=== PATIENT | female | born 2005 | race Caucasian/White ===

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

== ENCOUNTER → 2023-07-04 | Outpatient (CLI) | payer OTHER ==
[~2023-07-04] MED LIST changes: +CEPH500 PO; +Doxycycline Mo100 M1 PO
[2023-07-06 18:08] LABS: APTIMA MEDIA TYPE Unisex Swab; C. TRACHOMATIS BY TMA Negative (Negative); N. GONORRHOEAE BY TMA Negative (Negative); SPECIMEN SOURCE Vaginal
== END ==
LOC: LAB 13:13 → LAB SHORT 13:13
PROVIDERS: Advanced Practice Midwife
DX: Z11.3 Encounter for screening for infections with a predominantly sexual mode of transmission (principal)
CPT/HCPCS: 87491; 87591

== ENCOUNTER 2023-12-02 20:49 | Emergency (ER) | payer OTHER ==
[~2023-12-02] VITALS: Ht 154.9 cm; Wt 104.3 kg
[~2023-12-02 20:49] MED LIST changes: +ALBU90OI INH; +ALEVAZOL56.7 G1 TOP
[2023-12-02 21:30] LABS: BASOPHILS ABSOLUTE AUTO 0.06 K/mm3 (0.00-0.23); BASOPHILS PERCENT AUTO 1 % (0-2); EOSINOPHILS PERCENT AUTO 1 % (0-6); Hematocrit 44.7 % (33.0-51.0); Hemoglobin 15.6 g/dL (11.5-16.0); IMMATURE GRAN ABSOLUTE AUTO 0.04 K/mm3 (0.00-0.10); IMMATURE GRAN PERCENT AUTO 0 % (0-1); LYMPHOCYTES PERCENT AUTO 38 % (21-46); MONOCYTES ABSOLUTE AUTO 0.64 K/mm3 (0.16-1.47); MONOCYTES PERCENT AUTO 6 % (4-13); Mean Corpuscular HGB 28.8 pg (26.0-34.0); Mean Corpuscular HGB Conc 34.9 g/dL (31.5-36.5); Mean Corpuscular Volume 83 fL (80-100); Mean Platelet Volume 10.2 fL (9.1-12.4); NEUTROPHILS ABSOLUTE AUTO 5.44 K/mm3 (1.96-9.15); NEUTROPHILS PERCENT AUTO 53 % (41-73); Platelet Count 265 K/mm3 (150-400); RDW Coefficient Variation 12.4 % (11.7-14.2); RDW Standard Deviation 36.8 fL (35.1-46.3); Red Blood Cell Count 5.42 M/mm3 (3.80-5.20); White Blood Cell Count 10.18 K/mm3 (4.00-11.30)
[2023-12-02 21:53] LABS: Albumin, Blood 3.6 g/dL (3.4-5.0); Bilirubin, Total 0.3 mg/dL (0.1-1.0); Bun/Creatinine Ratio 16.1 (12.0-20.0); Calcium, Blood 9.4 mg/dL (8.5-10.1); Creatinine, Blood 0.75 mg/dL (0.40-1.00); Globulin, Blood 3.6 g/dL (2.2-4.0); Potassium, Blood 3.8 mmol/L (3.5-5.5); Total Protein, Blood 7.2 g/dL (6.4-8.2)
[2023-12-03 01:31] LABS: U Amphetamine Screen Not Detected; U Barbituate Screen Not Detected; U Benzodiazapine Screen Not Detected; U Buprenorphine Screen Not Detected; U Cannabinoids Screen Not Detected; U Cocaine Screen Not Detected; U Methadone Screen Not Detected; U Methamphetamine Screen Not Detected; U Opiates Screen Not Detected; U Oxycodone Screen Not Detected; U Phencyclidine Screen Not Detected
[2023-12-03 01:37] VITALS: BP 117/78
== END 2023-12-03 01:55 | disposition home or self-care (01) ==
LOC: ER 20:49
PROVIDERS: Nurse Practitioner
DX: G40.A09 Absence epileptic syndrome, not intractable, without status epilepticus (principal); Z91.199 Patient's noncompliance with other medical treatment and regimen due to unspecified reason; Z88.0 Allergy status to penicillin; Z91.038 Other insect allergy status; Z91.030 Bee allergy status
CPT/HCPCS: 80053; 81025; 85025; 99284

== ENCOUNTER 2023-12-10 21:20 | Emergency (ER) | payer OTHER ==
[~2023-12-10] VITALS: Ht 154.9 cm; Wt 108.9 kg
[2023-12-10 21:26] VITALS: BP 140/90
[2023-12-10] MEDS ORDERED: TOPI15C PO (21:29)
[2023-12-16] MEDS ORDERED: Celexa20 MG PO (20:03)
[2023-12-16] MEDS ORDERED: TRAZ50 PO (20:03)
[2023-12-16] MEDS ORDERED: KEPPRA250 M1 PO (20:58)
== END 2023-12-10 21:30 | disposition home or self-care (01) ==
LOC: ER 21:20
DX: Z76.0 Encounter for issue of repeat prescription (principal); Z86.69 Personal history of other diseases of the nervous system and sense organs; Z88.0 Allergy status to penicillin; Z91.030 Bee allergy status; Z79.899 Other long term (current) drug therapy
CPT/HCPCS: 99281

== ENCOUNTER 2024-01-15 15:51 | Emergency (ER) | payer OTHER ==
[~2024-01-15] VITALS: Ht 154.9 cm; Wt 104.3 kg
[~2024-01-15 15:51] MED LIST changes: +Celexa20 MG PO; +KEPPRA250 M1 PO; +TOPI15C PO; +TRAZ50 PO
[2024-01-15] MEDS ORDERED: LEVE500 (16:02)
[2024-01-15] MEDS ORDERED: LEVE500 PO (16:04)
[2024-01-15] MEDS ORDERED: CITALOPRAM HBR10 MG (16:06)
[2024-01-15 17:07] LABS: BASOPHILS ABSOLUTE AUTO 0.04 K/mm3 (0.00-0.23); BASOPHILS PERCENT AUTO 1 % (0-2); EOSINOPHILS ABSOLUTE AUTO 0.08 K/mm3 (0.00-0.68); EOSINOPHILS PERCENT AUTO 1 % (0-6); Hematocrit 44.3 % (33.0-51.0); Hemoglobin 14.8 g/dL (11.5-16.0); IMMATURE GRAN ABSOLUTE AUTO 0.02 K/mm3 (0.00-0.10); IMMATURE GRAN PERCENT AUTO 0 % (0-1); LYMPHOCYTES ABSOLUTE AUTO 2.91 K/mm3 (0.84-5.20); LYMPHOCYTES PERCENT AUTO 37 % (21-46); MONOCYTES PERCENT AUTO 6 % (4-13); Mean Corpuscular HGB 28.7 pg (26.0-34.0); Mean Corpuscular HGB Conc 33.4 g/dL (31.5-36.5); Mean Corpuscular Volume 86 fL (80-100); Mean Platelet Volume 10.4 fL (9.1-12.4); NEUTROPHILS ABSOLUTE AUTO 4.28 K/mm3 (1.96-9.15); NEUTROPHILS PERCENT AUTO 55 % (41-73); Platelet Count 192 K/mm3 (150-400); RDW Coefficient Variation 11.9 % (11.7-14.2); RDW Standard Deviation 37.3 fL (35.1-46.3); Red Blood Cell Count 5.16 M/mm3 (3.80-5.20); White Blood Cell Count 7.83 K/mm3 (4.00-11.30)
[2024-01-15 17:20] LABS: Albumin, Blood 3.1 g/dL (3.4-5.0); Albumin/Globulin Ratio 0.8 (0.8-1.8); Bilirubin, Total 0.4 mg/dL (0.1-1.0); Bun/Creatinine Ratio 15.5 (12.0-20.0); Calcium, Blood 8.3 mg/dL (8.5-10.1); Creatinine, Blood 0.71 mg/dL (0.40-1.00); Globulin, Blood 3.9 g/dL (2.2-4.0); Potassium, Blood 3.7 mmol/L (3.5-5.5)
[2024-01-15 17:50] VITALS: BP 128/58
== END 2024-01-15 17:50 | disposition home or self-care (01) ==
LOC: ER 15:51
PROVIDERS: Emergency Medicine
DX: G40.909 Epilepsy, unspecified, not intractable, without status epilepticus (principal)
CPT/HCPCS: 36415; 80053; 85025; 93005; 93010; 99284-25

== ENCOUNTER 2024-01-16 12:33 | Emergency (ER) | payer OTHER ==
[~2024-01-16] VITALS: Ht 154.9 cm; Wt 113.4 kg
[~2024-01-16 12:33] MED LIST changes: +CITALOPRAM HBR10 MG; +LEVE500; +LEVE500 PO
[2024-01-16 12:38] VITALS: BP 132/88
== END 2024-01-16 14:37 | disposition home or self-care (01) ==
LOC: ER 12:33
DX: R56.9 Unspecified convulsions (principal); F41.9 Anxiety disorder, unspecified; F19.10 Other psychoactive substance abuse, uncomplicated; Z88.0 Allergy status to penicillin; Z91.030 Bee allergy status; Z79.899 Other long term (current) drug therapy
CPT/HCPCS: 99284

== ENCOUNTER 2024-01-25 23:52 | Emergency (ER) | payer OTHER ==
[~2024-01-25] VITALS: Ht 154.9 cm; Wt 74.8 kg
[2024-01-25 23:56] VITALS: BP 137/88
== END 2024-01-26 00:26 | disposition home or self-care (01) ==
LOC: ER 23:52
DX: R56.9 Unspecified convulsions (principal); F41.9 Anxiety disorder, unspecified; R11.0 Nausea; Z91.030 Bee allergy status; Z88.0 Allergy status to penicillin; Z91.018 Allergy to other foods; Z59.00 Homelessness unspecified
CPT/HCPCS: 36415; 99284

== ENCOUNTER 2024-03-22 08:55 | Emergency (ER) | payer OTHER ==
[~2024-03-22] VITALS: Ht 154.9 cm; Wt 104.3 kg
[~2024-03-22 08:55] MED LIST changes: +ABILIFY MYCITE5 M2 PO
[2024-03-22] MEDS ORDERED: levETIRAcetam 1,000 MG in NS 100 ML IV ONE (09:15)
[2024-03-22 10:40] VITALS: BP 129/80
== END 2024-03-22 10:47 | disposition home or self-care (01) ==
LOC: ER 08:55
DX: G40.909 Epilepsy, unspecified, not intractable, without status epilepticus (principal); J45.909 Unspecified asthma, uncomplicated; F17.290 Nicotine dependence, other tobacco product, uncomplicated; Z79.899 Other long term (current) drug therapy; Z91.030 Bee allergy status; Z88.0 Allergy status to penicillin; Z91.018 Allergy to other foods
CPT/HCPCS: 96365; 99284-25; J1953

== ENCOUNTER 2024-05-24 20:45 | Emergency (ER) | payer OTHER ==
[~2024-05-24] VITALS: Ht 154.9 cm; Wt 104.3 kg
[2024-05-24 20:58] VITALS: BP 142/97
[2024-05-24] MEDS ORDERED: Ondansetron 4 MG SoluTab SL ONE (21:05)
[2024-05-24 21:53] LABS: Influenza A, PCR NEGATIVE (NEGATIVE); Influenza B, PCR NEGATIVE (NEGATIVE); Resp Syncytial Virus, PCR NEGATIVE (NEGATIVE); SARS-Cov-2 (COVID-19) PCR, MMC NEGATIVE (NEGATIVE)
[2024-05-25] MEDS ORDERED: DICY20 PO (21:31)
[2024-05-25] MEDS ORDERED: Ondansetron Odt8 MG MM (21:31)
== END 2024-05-24 22:44 | disposition left against medical advice (07) ==
LOC: ER 20:45
PROVIDERS: Emergency Medicine
DX: R11.2 Nausea with vomiting, unspecified (principal); R19.7 Diarrhea, unspecified; R50.9 Fever, unspecified; Z53.21 Procedure and treatment not carried out due to patient leaving prior to being seen by health care provider
CPT/HCPCS: 0241U; A9270

== ENCOUNTER 2024-05-25 16:31 | Emergency (ER) | payer OTHER ==
[~2024-05-25] VITALS: Ht 154.9 cm; Wt 104.3 kg
[2024-05-25 17:28] LABS: BASOPHILS ABSOLUTE AUTO 0.03 K/mm3 (0.00-0.23); BASOPHILS PERCENT AUTO 0 % (0-2); EOSINOPHILS ABSOLUTE AUTO 0.08 K/mm3 (0.00-0.68); EOSINOPHILS PERCENT AUTO 1 % (0-6); Hematocrit 43.2 % (33.0-51.0); Hemoglobin 14.8 g/dL (11.5-16.0); IMMATURE GRAN ABSOLUTE AUTO 0.01 K/mm3 (0.00-0.10); IMMATURE GRAN PERCENT AUTO 0 % (0-1); LYMPHOCYTES ABSOLUTE AUTO 2.82 K/mm3 (0.84-5.20); LYMPHOCYTES PERCENT AUTO 37 % (21-46); MONOCYTES ABSOLUTE AUTO 0.54 K/mm3 (0.16-1.47); MONOCYTES PERCENT AUTO 7 % (4-13); Mean Corpuscular HGB 28.2 pg (26.0-34.0); Mean Corpuscular HGB Conc 34.3 g/dL (31.5-36.5); Mean Corpuscular Volume 82 fL (80-100); Mean Platelet Volume 9.9 fL (9.1-12.4); NEUTROPHILS ABSOLUTE AUTO 4.14 K/mm3 (1.96-9.15); NEUTROPHILS PERCENT AUTO 54 % (41-73); Platelet Count 222 K/mm3 (150-400); RDW Standard Deviation 36.4 fL (35.1-46.3); Red Blood Cell Count 5.24 M/mm3 (3.80-5.20); White Blood Cell Count 7.62 K/mm3 (4.00-11.30)
[2024-05-25 18:14] LABS: Albumin, Blood 3.2 g/dL (3.4-5.0); Albumin/Globulin Ratio 0.9 (0.8-1.8); Bilirubin, Total 0.2 mg/dL (0.1-1.0); Bun/Creatinine Ratio 14.9 (12.0-20.0); Calcium, Blood 8.6 mg/dL (8.5-10.1); Creatinine, Blood 0.74 mg/dL (0.40-1.00); Globulin, Blood 3.7 g/dL (2.2-4.0); Potassium, Blood 3.4 mmol/L (3.5-5.5); Total Protein, Blood 6.9 g/dL (6.4-8.2)
[2024-05-25] MEDS ORDERED: Dicyclomine HCl 10 MG/ML 2ML Amp IM ONE (21:30)
[2024-05-25] MEDS ORDERED: Ondansetron 8 MG SoluTab SL ONE (21:30)
[2024-05-25] MEDS ORDERED: Ondansetron Odt8 MG MM (21:31)
[2024-05-25] MEDS ORDERED: DICY20 PO (21:31)
[2024-05-25 21:37] VITALS: BP 127/78
== END 2024-05-25 21:49 | disposition home or self-care (01) ==
LOC: ER 16:31
PROVIDERS: Physician Assistant
DX: R19.7 Diarrhea, unspecified (principal); R11.2 Nausea with vomiting, unspecified; R50.9 Fever, unspecified; Z79.899 Other long term (current) drug therapy; F17.290 Nicotine dependence, other tobacco product, uncomplicated; Z88.0 Allergy status to penicillin; Z91.030 Bee allergy status; Z91.09 Other allergy status, other than to drugs and biological substances
CPT/HCPCS: 80053; 84703; 85025; 99284; A9270; J0500

== ENCOUNTER 2024-08-05 21:30 | Emergency (ER) | payer OTHER ==
[~2024-08-05] VITALS: Ht 152.4 cm; Wt 104.3 kg
[~2024-08-05 21:30] MED LIST changes: +DICY20 PO; +Ondansetron Odt8 MG MM
[2024-08-05] MEDS ORDERED: ABILIFY MYCITE2 M2 PO (22:03)
[2024-08-05] MEDS ORDERED: NS 1,000 ML IV SCH (22:15)
[2024-08-05] MEDS ORDERED: levETIRAcetam 1,500 MG in NS 100 ML IV ONE (22:15)
[2024-08-05] MEDS ORDERED: LEVE500 PO (22:22)
[2024-08-05 22:47] LABS: BASOPHILS ABSOLUTE AUTO 0.03 K/mm3 (0.00-0.23); BASOPHILS PERCENT AUTO 0 % (0-2); EOSINOPHILS ABSOLUTE AUTO 0.06 K/mm3 (0.00-0.68); EOSINOPHILS PERCENT AUTO 1 % (0-6); Hemoglobin 14.8 g/dL (11.5-16.0); IMMATURE GRAN ABSOLUTE AUTO 0.03 K/mm3 (0.00-0.10); IMMATURE GRAN PERCENT AUTO 0 % (0-1); LYMPHOCYTES PERCENT AUTO 34 % (21-46); MONOCYTES ABSOLUTE AUTO 0.42 K/mm3 (0.16-1.47); MONOCYTES PERCENT AUTO 5 % (4-13); Mean Corpuscular HGB 29.1 pg (26.0-34.0); Mean Corpuscular HGB Conc 35.2 g/dL (31.5-36.5); Mean Corpuscular Volume 83 fL (80-100); Mean Platelet Volume 10.1 fL (9.1-12.4); NEUTROPHILS PERCENT AUTO 60 % (41-73); Platelet Count 223 K/mm3 (150-400); RDW Coefficient Variation 12.5 % (11.7-14.2); RDW Standard Deviation 37.5 fL (35.1-46.3); Red Blood Cell Count 5.08 M/mm3 (3.80-5.20); White Blood Cell Count 8.94 K/mm3 (4.00-11.30)
[2024-08-05 23:13] LABS: Albumin, Blood 3.2 g/dL (3.4-5.0); Albumin/Globulin Ratio 0.9 (0.8-1.8); Bilirubin, Total 0.4 mg/dL (0.1-1.0); Bun/Creatinine Ratio 20.3 (12.0-20.0); Calcium, Blood 8.7 mg/dL (8.5-10.1); Creatinine, Blood 0.69 mg/dL (0.40-1.00); Globulin, Blood 3.7 g/dL (2.2-4.0); Potassium, Blood 3.6 mmol/L (3.5-5.5); Total Protein, Blood 6.9 g/dL (6.4-8.2)
[2024-08-06 00:30] VITALS: BP 105/57
== END 2024-08-06 00:51 | disposition home or self-care (01) ==
LOC: ER 21:30
PROVIDERS: Emergency Medicine
DX: G40.909 Epilepsy, unspecified, not intractable, without status epilepticus (principal); E86.0 Dehydration; R51.9 Headache, unspecified; T42.6X6A Underdosing of other antiepileptic and sedative-hypnotic drugs, initial encounter; F17.290 Nicotine dependence, other tobacco product, uncomplicated; Z91.148 Patient's other noncompliance with medication regimen for other reason; Z91.018 Allergy to other foods; Z88.0 Allergy status to penicillin; Z91.030 Bee allergy status; Z79.899 Other long term (current) drug therapy; Z59.89 Other problems related to housing and economic circumstances
CPT/HCPCS: 80053; 82550; 84703; 85025; 93005; 93010; 96365; 99284-25; J1953; J7030

== ENCOUNTER 2024-08-15 18:41 | Emergency (ER) | payer OTHER ==
[~2024-08-15] VITALS: Ht 167.6 cm; Wt 95.2 kg
[~2024-08-15 18:41] MED LIST changes: +ABILIFY MYCITE2 M2 PO
[2024-08-15 19:54] LABS: BASOPHILS ABSOLUTE AUTO 0.05 K/mm3 (0.00-0.23); BASOPHILS PERCENT AUTO 1 % (0-2); EOSINOPHILS ABSOLUTE AUTO 0.06 K/mm3 (0.00-0.68); EOSINOPHILS PERCENT AUTO 1 % (0-6); Hematocrit 43.7 % (33.0-51.0); Hemoglobin 14.7 g/dL (11.5-16.0); IMMATURE GRAN ABSOLUTE AUTO 0.03 K/mm3 (0.00-0.10); IMMATURE GRAN PERCENT AUTO 0 % (0-1); LYMPHOCYTES ABSOLUTE AUTO 2.52 K/mm3 (0.84-5.20); LYMPHOCYTES PERCENT AUTO 30 % (21-46); MONOCYTES ABSOLUTE AUTO 0.45 K/mm3 (0.16-1.47); MONOCYTES PERCENT AUTO 5 % (4-13); Mean Corpuscular HGB 28.4 pg (26.0-34.0); Mean Corpuscular HGB Conc 33.6 g/dL (31.5-36.5); Mean Corpuscular Volume 85 fL (80-100); Mean Platelet Volume 10.2 fL (9.1-12.4); NEUTROPHILS ABSOLUTE AUTO 5.39 K/mm3 (1.96-9.15); NEUTROPHILS PERCENT AUTO 63 % (41-73); Platelet Count 219 K/mm3 (150-400); RDW Coefficient Variation 12.6 % (11.7-14.2); RDW Standard Deviation 38.7 fL (35.1-46.3); Red Blood Cell Count 5.17 M/mm3 (3.80-5.20)
[2024-08-15 21:24] LABS: Anion Gap 11 mmol/L (3-11); Blood Urea Nitrogen 10 mg/dL (8-24); Bun/Creatinine Ratio 15.3 (12.0-20.0); CO2, Blood 23 mmol/L (21-32); Calcium, Blood 8.8 mg/dL (8.5-10.1); Chloride, Blood 113 mmol/L (98-108); Creatinine, Blood 0.65 mg/dL (0.40-1.00); Glomerular Filtration Rate 128 (60-); Glucose, Blood 95 mg/dL (70-99); Potassium, Blood 3.8 mmol/L (3.5-5.5); Prolactin 8.4 ng/mL; Sodium, Blood 143 mmol/L (136-145)
[2024-08-15 21:36] LABS: CORONAVIRUS COVID-19 AG Negative (NEGATIVE); INFLUENZA A AG Negative (NEGATIVE); INFLUENZA B AG Negative (NEGATIVE)
[2024-08-15 22:04] LABS: Beta HCG, Quantitative, Serum <1 mIU/mL (0-3)
[2024-08-15 22:13] LABS: Source, Urine Clean Catch
[2024-08-15 22:19] LABS: Bilirubin, Urine Neg (Neg); Blood, Urine Neg (Neg); Glucose Qualitative, Urine Neg (Neg); Ketones, Urine Neg (Neg); Leukocyte Esterase, Urine Neg (Neg); Nitrite, Urine Neg (Neg); Protein, Urine 1+ (Neg); Specific Gravity, Urine 1.015 (1.003-1.022); Urobilinogen, Urine NORM (Normal)
[2024-08-15 22:23] LABS: Appearance, Urine Cloudy (Clear); Color, Urine Yellow (P-Yellow)
[2024-08-15 22:32] LABS: Amorphous Heavy (0-Heavy); Bacteria Rare /hpf; Red Blood Cells, Urine Not Seen /hpf (0-2); Squamous Epithelial Cells Few /hpf (Few); White Blood Cells, Urine Not Seen /hpf (0-5)
[2024-08-15] MEDS ORDERED: LevETIRAcetam 500 MG Tab PO ONE (22:35)
[2024-08-15 22:44] VITALS: BP 130/84
== END 2024-08-15 22:52 | disposition home or self-care (01) ==
LOC: ER 18:41
PROVIDERS: Student in an Organized Health Care Education/Training Program
DX: R56.9 Unspecified convulsions (principal); Z91.198 Patient's noncompliance with other medical treatment and regimen for other reason; F17.290 Nicotine dependence, other tobacco product, uncomplicated; Z88.0 Allergy status to penicillin; Z91.030 Bee allergy status; Z91.018 Allergy to other foods
CPT/HCPCS: 36415; 80048; 81001; 81025; 84146; 84702; 85025; 87428-QW; 99284; A9270

== ENCOUNTER 2024-09-16 19:11 | Emergency (ER) | payer OTHER ==
[~2024-09-16] VITALS: Ht 154.9 cm; Wt 104.3 kg
[2024-09-16] MEDS ORDERED: Acetaminophen 500 MG Tab PO ONE (20:05)
[2024-09-16] MEDS ORDERED: NS 1,000 ML IV SCH (20:05)
[2024-09-16] MEDS ORDERED: levETIRAcetam 1,000 MG in NS 100 ML IV ONE (20:05)
[2024-09-16 21:18] LABS: BASOPHILS ABSOLUTE AUTO 0.04 K/mm3 (0.00-0.23); BASOPHILS PERCENT AUTO 0 % (0-2); EOSINOPHILS ABSOLUTE AUTO 0.13 K/mm3 (0.00-0.68); EOSINOPHILS PERCENT AUTO 1 % (0-6); Hematocrit 42.3 % (33.0-51.0); IMMATURE GRAN ABSOLUTE AUTO 0.04 K/mm3 (0.00-0.10); IMMATURE GRAN PERCENT AUTO 0 % (0-1); LYMPHOCYTES ABSOLUTE AUTO 3.25 K/mm3 (0.84-5.20); LYMPHOCYTES PERCENT AUTO 32 % (21-46); MONOCYTES ABSOLUTE AUTO 0.64 K/mm3 (0.16-1.47); MONOCYTES PERCENT AUTO 6 % (4-13); Mean Corpuscular HGB 28.9 pg (26.0-34.0); Mean Corpuscular HGB Conc 35.5 g/dL (31.5-36.5); Mean Corpuscular Volume 82 fL (80-100); NEUTROPHILS PERCENT AUTO 60 % (41-73); RDW Coefficient Variation 12.6 % (11.7-14.2); RDW Standard Deviation 37.2 fL (35.1-46.3); Red Blood Cell Count 5.19 M/mm3 (3.80-5.20)
[2024-09-16 21:38] LABS: Bun/Creatinine Ratio 15.5 (12.0-20.0); Calcium, Blood 8.6 mg/dL (8.5-10.1); Creatinine, Blood 0.71 mg/dL (0.40-1.00); Potassium, Blood 3.7 mmol/L (3.5-5.5); Prolactin 11.2 ng/mL
[2024-09-16 21:39] LABS: Source, Urine Clean Catch
[2024-09-16 21:48] LABS: Bilirubin, Urine Neg (Neg); Blood, Urine Neg (Neg); Color, Urine Yellow (P-Yellow); Glucose Qualitative, Urine Neg (Neg); Ketones, Urine Neg (Neg); Leukocyte Esterase, Urine Neg (Neg); Nitrite, Urine Neg (Neg); Protein, Urine 2+ (Neg); Specific Gravity, Urine 1.025 (1.003-1.022); Urobilinogen, Urine NORM (Normal)
[2024-09-16 21:55] LABS: Appearance, Urine Hazy (Clear)
[2024-09-16 21:56] LABS: Bacteria Many /hpf; Red Blood Cells, Urine 0-2 /hpf (0-2); Squamous Epithelial Cells Many /hpf (Few); White Blood Cells, Urine 0-2 /hpf (0-5)
[2024-09-16 22:00] VITALS: BP 138/81
[2024-09-16 22:21] LABS: Platelet Count 197 K/mm3 (150-400)
[2024-09-19 06:44] LABS: KEPPRA (LEVETIRACETAM) <2 ug/mL (10-40)
== END 2024-09-16 22:23 | disposition home or self-care (01) ==
LOC: ER 19:11
PROVIDERS: Student in an Organized Health Care Education/Training Program
DX: R56.9 Unspecified convulsions (principal); F17.290 Nicotine dependence, other tobacco product, uncomplicated; Z79.899 Other long term (current) drug therapy; Z91.018 Allergy to other foods; Z88.0 Allergy status to penicillin; Z91.030 Bee allergy status
CPT/HCPCS: 80048; 80177; 81001; 81025; 84146; 85025; 87086; 93005; 93010; 96365; 96366; 99284-25; A9270; J1953; J7030

== ENCOUNTER 2024-09-17 13:42 | Emergency (ER) | payer OTHER ==
[~2024-09-17] VITALS: Ht 165.1 cm; Wt 95.2 kg
[2024-09-17] MEDS ORDERED: Ketorolac Tromethamine 15mg Vial IV ONE (15:40)
[2024-09-17] MEDS ORDERED: NS 1,000 ML IV SCH (15:40)
[2024-09-17] MEDS ORDERED: Prochlorperazine Edisylate 10 mg Vial IV ONE (15:40)
[2024-09-17 16:10] VITALS: BP 111/75
== END 2024-09-17 16:10 | disposition home or self-care (01) ==
LOC: ER 13:42
DX: R56.9 Unspecified convulsions (principal); G83.84 Todd's paralysis (postepileptic); F17.290 Nicotine dependence, other tobacco product, uncomplicated; Z79.899 Other long term (current) drug therapy; Z91.018 Allergy to other foods; Z91.030 Bee allergy status; Z88.0 Allergy status to penicillin
CPT/HCPCS: 99284

== ENCOUNTER 2024-09-28 14:31 | Observation (INO) | payer OTHER ==
[~2024-09-28] VITALS: Ht 162.6 cm; Wt 108.9 kg
[2024-09-28] MEDS ORDERED: Lactated Ringer's 1,000 ML IV ONE (14:45)
[2024-09-28 14:54] LABS: Base Excess Venous -1.7 mmol/L; Bicarbonate Venous 22.7 mmol/L (24.0-30.0); PCO2 Venous 42.7 mmHg (38-42); pH Blood Venous 7.35 (7.34-7.37)
[2024-09-28 15:24] LABS: BASOPHILS ABSOLUTE AUTO 0.04 K/mm3 (0.00-0.23); BASOPHILS PERCENT AUTO 1 % (0-2); EOSINOPHILS ABSOLUTE AUTO 0.09 K/mm3 (0.00-0.68); EOSINOPHILS PERCENT AUTO 1 % (0-6); Hematocrit 49.8 % (33.0-51.0); Hemoglobin 17.4 g/dL (11.5-16.0); IMMATURE GRAN ABSOLUTE AUTO 0.04 K/mm3 (0.00-0.10); IMMATURE GRAN PERCENT AUTO 1 % (0-1); LYMPHOCYTES ABSOLUTE AUTO 2.96 K/mm3 (0.84-5.20); LYMPHOCYTES PERCENT AUTO 37 % (21-46); MONOCYTES ABSOLUTE AUTO 0.38 K/mm3 (0.16-1.47); MONOCYTES PERCENT AUTO 5 % (4-13); Mean Corpuscular HGB Conc 34.9 g/dL (31.5-36.5); Mean Corpuscular Volume 83 fL (80-100); Mean Platelet Volume 10.2 fL (9.1-12.4); NEUTROPHILS ABSOLUTE AUTO 4.41 K/mm3 (1.96-9.15); NEUTROPHILS PERCENT AUTO 56 % (41-73); Platelet Count 238 K/mm3 (150-400); RDW Coefficient Variation 12.5 % (11.7-14.2); RDW Standard Deviation 37.6 fL (35.1-46.3); White Blood Cell Count 7.92 K/mm3 (4.00-11.30)
[2024-09-28 16:00] LABS: Ethanol (Alcohol), Blood, Med <3 mg/dL; Magnesium, Blood 1.9 mg/dL (1.6-2.4); Salicylate <1.7 mg/dL (2.8-20.0)
[2024-09-28 16:03] LABS: Alanine Aminotransfer (ALT/SGP 38 U/L (12-78); Albumin, Blood 3.7 g/dL (3.4-5.0); Albumin/Globulin Ratio 0.9 (0.8-1.8); Alk Phos 118 U/L (50-136); Anion Gap 9 mmol/L (3-11); Aspartate Aminotrans (AST/SGOT 29 U/L (12-37); Bilirubin, Total 0.3 mg/dL (0.1-1.0); Blood Urea Nitrogen 7 mg/dL (8-24); CO2, Blood 24 mmol/L (21-32); Calcium, Blood 9.1 mg/dL (8.5-10.1); Chloride, Blood 107 mmol/L (98-108); Creatinine, Blood 0.64 mg/dL (0.40-1.00); Globulin, Blood 4.3 g/dL (2.2-4.0); Glomerular Filtration Rate 129 (60-); Glucose, Blood 110 mg/dL (70-99); Sodium, Blood 136 mmol/L (136-145)
[2024-09-28 16:29] LABS: Acetaminophen, Random <2.0 ug/mL (10.0-30.0)
[2024-09-28 16:35] LABS: Source, Urine Clean Catch
[2024-09-28 16:48] LABS: Appearance, Urine Hazy (Clear); Bilirubin, Urine Neg (Neg); Blood, Urine Neg (Neg); Color, Urine Yellow (P-Yellow); Glucose Qualitative, Urine Neg (Neg); Ketones, Urine Neg (Neg); Leukocyte Esterase, Urine 2+ (Neg); Nitrite, Urine Neg (Neg); Protein, Urine 2+ (Neg); Specific Gravity, Urine 1.025 (1.003-1.022); Urobilinogen, Urine NORM (Normal)
[2024-09-28] MEDS ORDERED: Ondansetron HCl 2 MG / ML 2ML Vial IV ONE (17:30)
[2024-09-28 17:37] LABS: Bacteria Many /hpf; Calcium Oxalate Crystals Mod /hpf; Red Blood Cells, Urine Not Seen /hpf (0-2); Squamous Epithelial Cells Few /hpf (Few)
[2024-09-28] MEDS ORDERED: Cephalexin Monohydrate 500 MG Cap PO SCH (21:00)
[2024-09-29] MEDS ORDERED: LevETIRAcetam 500 MG Tab PO ONE (08:30)
[2024-09-29] MEDS ORDERED: LevETIRAcetam 500 MG Tab PO SCH ×2 (09:00→21:00)
[2024-09-29 12:21] VITALS: BP 121/79
[2024-09-29] MEDS ORDERED: CITALOPRAM HBR10 MG PO (16:13)
[2024-09-29] MEDS ORDERED: KEPPRA250 M1 (16:16)
[2024-09-29] MEDS ORDERED: KEPPRA XR750 MG PO (16:18)
[2024-09-29] MEDS ORDERED: CEPH500 PO ×2 (16:33→16:35)
== END 2024-09-29 14:26 | disposition other institution (70) ==
LOC: ER 14:31 → EOR 14:32 → EDBEDREQ 09-29 08:51 → EOR 09-29 14:25
PROVIDERS: ADMIT Student in an Organized Health Care Education/Training Program
DX: T43.212A Poisoning by selective serotonin and norepinephrine reuptake inhibitors, intentional self-harm, initial encounter (principal); F17.290 Nicotine dependence, other tobacco product, uncomplicated; R45.851 Suicidal ideations; Z88.0 Allergy status to penicillin; Z88.8 Allergy status to other drugs, medicaments and biological substances; Z91.030 Bee allergy status; Z91.038 Other insect allergy status; Z79.899 Other long term (current) drug therapy
CPT/HCPCS: 80053; 80320; 81001; 82803; 83735; 84703; 85025; 87077; 87086; 87186; 93005; 93010; 96361; 96374; 99285-25; A9270; G0378; G0480; J2405; J7120

== ENCOUNTER 2024-09-29 08:36 | Inpatient (IN) | payer OTHER ==
[2024-09-29] MEDS ORDERED: Haloperidol 5 MG Tab PO PRN (10:10)
[2024-09-29] MEDS ORDERED: Acetaminophen 325 MG TABLET PO PRN (10:10)
[2024-09-29] MEDS ORDERED: FLU VACC TS2024-25(6MOS UP)/PF 45 MCG/0.5 ML SYRINGE IM SCH (10:10)
[2024-09-29] MEDS ORDERED: Calcium Carbonate 500 MG Tab Chew PO PRN (10:10)
[2024-09-29] MEDS ORDERED: Aluminum Hydroxide 320MG/5ML 473 ML PO PRN (10:10)
[2024-09-29] MEDS ORDERED: Ibuprofen 600 MG Tab PO PRN (10:15)
[2024-09-29] MEDS ORDERED: TraZODone HCl 50 MG Tab PO PRN (10:15)
[2024-09-29] MEDS ORDERED: OLANZapine ODT 10 MG Tab MM PRN (10:15)
[2024-09-29] MEDS ORDERED: HydrOXYzine Pamoate 50 MG Cap PO PRN (10:15)
[2024-09-29] MEDS ORDERED: LORazepam 2 MG Tab PO PRN (10:15)
[2024-09-29] MEDS ORDERED: Polyethylene Glycol 3350 17 gm PO PRN (10:20)
[2024-09-29] MEDS ORDERED: Melatonin 3 MG Tab PO PRN (10:20)
[2024-09-29] MEDS ORDERED: DiphenhydrAMINE HCl 50 MG Cap PO PRN (10:25)
[2024-09-29] MEDS ORDERED: Ondansetron 4 MG SoluTab MM PRN (10:30)
[2024-09-29] MEDS ORDERED: CITALOPRAM HBR10 MG PO (16:13)
[2024-09-29] MEDS ORDERED: TRAZ50 PO (16:14)
[2024-09-29] MEDS ORDERED: KEPPRA250 M1 (16:16)
[2024-09-29] MEDS ORDERED: KEPPRA XR750 MG PO (16:18)
[2024-09-29] MEDS ORDERED: CEPH500 PO ×2 (16:33→16:35)
--- NOTE | 2024-09-29 16:39 | NUR ---
PT WAS ADMITTED TO [facility] AT 14:27. SHE DENIED THE OD BEING A SUICIDE ATTEMPT, "I JUST WANTED TO SLEEP...I HAVE TROUBLE SLEEPING." SHE DENIED SI, HI, AVH (NOT RIGHT NOW)." SHE COMPLAINED OF "IT HURTS ON MY CHEST WHERE THEY RUBBED YESTERDAY." PT WAS GIVEN A TOUR/ORIENTATION OF THE UNIT AND IS PRESENTLY WATCHING A MOVIE WITH PEERS.
[2024-09-29] MEDS ORDERED: Nicotine Polacrilex 2 MG Gum PO PRN (16:40)
--- NOTE | 2024-09-29 18:22 | NUR ---
PT TALKED WITH HER BOYFRIEND AND MADE ARRANGEMENTS FOR A VISIT WITH HIM TOMORROW. SHE SEEMS TO BE IN GOOD HUMOR AND IS SOMEWHAT ACTIVE IN THE PT MILIEU. SHE IS PRESENTLY WATCHING A MOVIE IN THE TV ROOM WITH PEERS.
[2024-09-29] MEDS ORDERED: LevETIRAcetam 500 MG Tab PO ONE (19:35)
[2024-09-29 20:12] VITALS: BP 138/93
[2024-09-29] MEDS ORDERED: Cephalexin Monohydrate 500 MG Cap PO SCH (21:00)
--- NOTE | 2024-09-30 04:06 | NUR ---
SHIFT SUMMARY PATIENT ACTIVE IN MILIEU TALKING WITH STAFF AND PEERS. DENIES SI, HI, AVH. VERBALIZED FEELING "NEUTRAL" COOPERATIVE WITH MEDICATIONS. PATIENT AGREES TO COME TO STAFF IF HAVING ANY URGE TO HARM SELF OR HAVING ANY SI. APPEARS TO BE SLEEPING WELL T/O NIGHT RESP EVEN AND UNLABORED.
[2024-09-30 07:55] VITALS: BP 126/88
[2024-09-30] MEDS ORDERED: Multivitamins 1 Tab PO SCH (09:00)
[2024-09-30] MEDS ORDERED: LevETIRAcetam 500 MG Tab PO SCH ×2 (09:00→18:00)
[2024-09-30] MEDS ORDERED: Citalopram Hydrobromide 10 MG TAB PO SCH (09:00)
[2024-09-30] MEDS ORDERED: HydrOXYzine Pamoate 50 MG Cap PO PRN (09:45)
--- NOTE | 2024-09-30 13:29 | NUR ---
pT A/O X4. PLESANT AND COOPERATIVE. DENIES SI,HI, AND AVH. PT STATES SHE IS DOING GOOD. PT VAPES "ALL DAY"" AND PRACTICALLY 'NON-STOP'. GIVEN NICOTINE GUM. HAS NOT SPOKE OF MOTHER'S SO FAR THIS AM. PT IS KNOWLEDGEABLE ON HER MEDICATIONS WHEN GIVEN. 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 PARTICIPATES IN GROUPS AND IS MED COMPLIANT. WILL CONTINUE TO MONITOR FROM SAFETY.
[2024-09-30 20:07] VITALS: BP 123/80
--- NOTE | 2024-10-01 04:13 | NUR ---
SHIFT SUMMARY: PATIENT WAS IN THE DAY ROOM WITH SELECT PEER AT THE BEGINNING OF THE SHIFT. SHE WAS PLAYING [place] GAMES ON THE TV WITH TWO PEERS, MOSTLY WITH ONE PARTICULAR FEMALE PEER. THEY WERE BOISTEROUS AND PLEASANT, JOKING AND LAUGHING. PATIENT STATED THAT SHE HAD A HEADACHE 9/10. SHE WAS GIVEN TYLENOL WITH HER EVENING MEDICATIONS AND LATER STATED THAT THE HEADACHE HAD LOWERED TO A 4/10. SHE PARTICIPATED IN SNACK AND FOLLOW UP GROUP AT 1999. SHE WENT BACK TO THE DAY ROOM AND WAS WATCHING A MOVIE WITH PEERS. SHE WAS PLEASANT AND COOPERATIVE WITH CARES. SHE WAS COMPLIANT WITH EVENING MEDICATIONS. SHE WENT TO BED AT 2200 AND WAS NOTED TO BE RESTING IN BED WITH EYES CLOSED AND RESPIRATIONS CONFIRMED FOR THE REMAINDER OF THE SHIFT. SHE DENIED THOUGHTS OF SI/HI OR SELF HARM THIS SHIFT. CONTINUING TO MONITOR FOR SAFETY WITH Q15 MINUTE CHECKS.
[2024-10-01 07:22] VITALS: BP 129/88
--- NOTE | 2024-10-01 09:02 | NUR ---
HOSPITAL DISCHARGE APPOINTMENT Patient is scheduled for hospital discharge appointment with VINCENT Palma on 10/05/24 at 0835 at [facility] // [address] [address] // [phone] SUMMER entered appointment information into patient's discharge packet
[2024-10-01] MEDS ORDERED: FLUoxetine HCL 20 MG CAP PO SCH (16:00)
--- NOTE | 2024-10-01 16:03 | NUR ---
HOSPITAL FOLLOW-UP APPOINTMENT INFORMATION Patient is scheduled to meet with her therapist MARIN Martinez at [facility] on 10/05/2024 at 1000 // [address] [place], [place] [address] // [phone] SUMMER entered appointment information into patient's discharge packet
--- NOTE | 2024-10-01 17:23 | NUR ---
SHIFT SUMMARY: PT A/O X4. IN CHEERY AND FUN MOOD. PARTICIPATED IN GROUPS. MED COMPLIANT. USES NICOTINE GUM ABOUT EVERY 3 HOURS. DID NOT SPEAK OF MOTHER'S . IS EXCITED ABOUT GOING HOME TOMORROW. STATED THAT SHE ONLY NEEDED " A LITTLE TUNE UP." STATES THAT SHE WILL BE A BETTER PERSON FROM THIS MISTAKE. WILL CONTINUE TO MONITOR.
[2024-10-01 19:11] VITALS: BP 138/80
[2024-10-02] MEDS ORDERED: Prozac20 MG PO (05:11)
[2024-10-02] MEDS ORDERED: HYDPAM50 PO (05:12)
--- NOTE | 2024-10-02 05:42 | NUR ---
SHIFT SUMMARY Pt is A&O x4, calm, cooperative, polite, eye contact is appropriate. Pt stated her mood was "good," affect is euthymic, congruent to reported mood. Pt denies SI, HI, hallucinations, and current pain. Pt was active on the unit this evening, listening to music in the Sensory Room, watching TV, and talking with staff. Pt received PRN hydroxyzine for insomnia during HS med pass. Staff continues to monitor q15m for safety and wellness.
--- NOTE | 2024-10-02 09:44 | NUR ---
PT A/O X4. PT IS IN A HAPPY MOOD. SHE IS EXCITED TO BE GONG HOME TODAY AND THAT SHE WILL SEE HER CAT.WILL RETURN TO WORK AND WANTS TO LOOK FOR A NEW JOB ALSO. LISTENS TO MUSIC ON THE HEAD PHONES WHILE UP IN THE MILIEU. DENIES TO BE SI, HI AND AVH. WILL CONTINUE TO MONITOR.
[2024-10-02 11:59] VITALS: BP 137/83
--- NOTE | 2024-10-02 12:40 | NUR ---
PT A/O X4. DISCHARED AT 1230. AMBULATED TO BOY FRIEND'S CAR WITH STEADY GAIT. GIVEN DISCHARGE INSTRUCTIONS, PT DECLINED OFFER OF NICOTINE CESSATION COUSELING, STATING THE FIRST THING SHE IS GOING TO DO WHEN SHE GETS OUT IS "VAPE". PRESCRIOTIONS CALLED INTO [facility] IN [place] [facility].. SPOKE TO PHARMICIST JAVIER TO GIVE ORDERS. EDUCATION PROVIDED ON MEDICATIONS AND SUICIDAAL IDEATION WITH VERBAL RETURN OF UNDERSTADING. DISCUSSED APPOINTMENT TIMES MADE FOR F/U CARE. BELONGINGS RETURNED TO PT.
== END 2024-10-02 12:30 | disposition home or self-care (01) | DRG 885 ==
LOC: BHU 08:36
PROVIDERS: ADMIT Psychiatry & Neurology Psychiatry
DX: F33.2 Major depressive disorder, recurrent severe without psychotic features (principal); F43.25 Adjustment disorder with mixed disturbance of emotions and conduct; R56.9 Unspecified convulsions; F17.290 Nicotine dependence, other tobacco product, uncomplicated; F15.10 Other stimulant abuse, uncomplicated; F12.10 Cannabis abuse, uncomplicated; Z88.0 Allergy status to penicillin; Z91.030 Bee allergy status; Z91.018 Allergy to other foods; Z88.1 Allergy status to other antibiotic agents; Z79.899 Other long term (current) drug therapy; Z79.1 Long term (current) use of non-steroidal anti-inflammatories (NSAID)
CPT/HCPCS: A9270

== ENCOUNTER 2024-10-20 15:58 | Emergency (ER) | payer OTHER ==
[~2024-10-20] VITALS: Ht 154.9 cm; Wt 81.7 kg
[~2024-10-20 15:58] MED LIST changes: +CITALOPRAM HBR10 MG PO; +HYDPAM50 PO; +KEPPRA XR750 MG PO; +KEPPRA250 M1; +Prozac20 MG PO
[2024-10-20 18:18] VITALS: BP 128/80
== END 2024-10-20 18:31 | disposition home or self-care (01) ==
LOC: ER 15:58
DX: R56.9 Unspecified convulsions (principal); F17.290 Nicotine dependence, other tobacco product, uncomplicated; Z91.030 Bee allergy status; Z91.038 Other insect allergy status; Z88.0 Allergy status to penicillin; Z91.018 Allergy to other foods
CPT/HCPCS: 93005; 93010; 99284-25

== ENCOUNTER 2024-10-28 15:42 | Emergency (ER) | payer OTHER ==
[~2024-10-28] VITALS: Ht 165.1 cm; Wt 90.7 kg
[2024-10-28 17:37] LABS: Source, Urine Clean Catch
[2024-10-28 17:52] LABS: Appearance, Urine Hazy (Clear); Bilirubin, Urine Neg (Neg); Blood, Urine Neg (Neg); Color, Urine Yellow (P-Yellow); Glucose Qualitative, Urine Neg (Neg); Ketones, Urine Neg (Neg); Leukocyte Esterase, Urine Neg (Neg); Nitrite, Urine Neg (Neg); Protein, Urine 1+ (Neg); Urobilinogen, Urine NORM (Normal)
[2024-10-28 18:02] LABS: Albumin, Blood 3.3 g/dL (3.4-5.0); Albumin/Globulin Ratio 0.9 (0.8-1.8); Bilirubin, Total 0.7 mg/dL (0.1-1.0); Calcium, Blood 8.4 mg/dL (8.5-10.1); Creatinine, Blood 0.55 mg/dL (0.40-1.00); Globulin, Blood 3.6 g/dL (2.2-4.0); Magnesium, Blood 2.4 mg/dL (1.6-2.4); Potassium, Blood 4.1 mmol/L (3.5-5.5); Total Protein, Blood 6.9 g/dL (6.4-8.2)
[2024-10-28 18:12] LABS: U Amphetamine Screen Not Detected; U Barbituate Screen Not Detected; U Benzodiazapine Screen Not Detected; U Buprenorphine Screen Not Detected; U Cannabinoids Screen Not Detected; U Cocaine Screen Not Detected; U Methadone Screen Not Detected; U Methamphetamine Screen Not Detected; U Opiates Screen Not Detected; U Oxycodone Screen Not Detected; U Phencyclidine Screen Not Detected
[2024-10-28 18:20] LABS: Bacteria Few /hpf; Red Blood Cells, Urine 0-2 /hpf (0-2); Squamous Epithelial Cells Few /hpf (Few); White Blood Cells, Urine 0-2 /hpf (0-5)
[2024-10-28 18:21] LABS: Amorphous Mod (0-Heavy)
[2024-10-28] MEDS ORDERED: LEVE500 PO (18:40)
[2024-10-28 18:42] LABS: BASOPHILS ABSOLUTE AUTO 0.05 K/mm3 (0.00-0.23); BASOPHILS PERCENT AUTO 1 % (0-2); EOSINOPHILS ABSOLUTE AUTO 0.08 K/mm3 (0.00-0.68); EOSINOPHILS PERCENT AUTO 1 % (0-6); Hematocrit 45.3 % (33.0-51.0); Hemoglobin 15.6 g/dL (11.5-16.0); IMMATURE GRAN ABSOLUTE AUTO 0.03 K/mm3 (0.00-0.10); IMMATURE GRAN PERCENT AUTO 0 % (0-1); LYMPHOCYTES ABSOLUTE AUTO 2.56 K/mm3 (0.84-5.20); LYMPHOCYTES PERCENT AUTO 28 % (21-46); MONOCYTES ABSOLUTE AUTO 0.45 K/mm3 (0.16-1.47); MONOCYTES PERCENT AUTO 5 % (4-13); Mean Corpuscular HGB 28.6 pg (26.0-34.0); Mean Corpuscular HGB Conc 34.4 g/dL (31.5-36.5); Mean Corpuscular Volume 83 fL (80-100); Mean Platelet Volume 9.9 fL (9.1-12.4); NEUTROPHILS ABSOLUTE AUTO 5.97 K/mm3 (1.96-9.15); NEUTROPHILS PERCENT AUTO 65 % (41-73); Platelet Count 226 K/mm3 (150-400); RDW Coefficient Variation 12.5 % (11.7-14.2); Red Blood Cell Count 5.46 M/mm3 (3.80-5.20); White Blood Cell Count 9.14 K/mm3 (4.00-11.30)
[2024-10-28 19:14] VITALS: BP 128/85
== END 2024-10-28 19:13 | disposition home or self-care (01) ==
LOC: ER 15:42
PROVIDERS: Student in an Organized Health Care Education/Training Program
DX: Z76.0 Encounter for issue of repeat prescription (principal); R56.9 Unspecified convulsions; F17.290 Nicotine dependence, other tobacco product, uncomplicated
CPT/HCPCS: 80053; 81001; 83735; 85025; 93005; 93010; 99284-25

== ENCOUNTER 2025-02-11 22:23 | Emergency (ER) | payer OTHER ==
[~2025-02-11] VITALS: Ht 154.9 cm; Wt 113.4 kg
[2025-02-11 22:35] VITALS: BP 143/111
[2025-02-12] MEDS ORDERED: IBUP600 PO ×2 (00:13→00:24)
[2025-02-12] MEDS ORDERED: FAMO20 PO ×2 (00:13→00:24)
== END 2025-02-12 00:36 | disposition home or self-care (01) ==
LOC: ER 22:23
DX: S93.401A Sprain of unspecified ligament of right ankle, initial encounter (principal); F17.290 Nicotine dependence, other tobacco product, uncomplicated; X58.XXXA Exposure to other specified factors, initial encounter; Z79.899 Other long term (current) drug therapy; Z91.030 Bee allergy status; Z88.0 Allergy status to penicillin; Z91.018 Allergy to other foods
CPT/HCPCS: 73610; 99283-25; A9270

== ENCOUNTER 2025-03-10 00:58 | Emergency (ER) | payer OTHER ==
[~2025-03-10] VITALS: Ht 154.9 cm; Wt 104.3 kg
[~2025-03-10 00:58] MED LIST changes: +FAMO20 PO; +IBUP600 PO
[2025-03-10 01:04] VITALS: BP 153/90
[2025-03-10 01:45] LABS: BASOPHILS ABSOLUTE AUTO 0.06 K/mm3 (0.00-0.23); BASOPHILS PERCENT AUTO 1 % (0-2); EOSINOPHILS ABSOLUTE AUTO 0.15 K/mm3 (0.00-0.68); EOSINOPHILS PERCENT AUTO 2 % (0-6); Hematocrit 45.2 % (33.0-51.0); Hemoglobin 15.1 g/dL (11.5-16.0); IMMATURE GRAN ABSOLUTE AUTO 0.08 K/mm3 (0.00-0.10); IMMATURE GRAN PERCENT AUTO 1 % (0-1); LYMPHOCYTES ABSOLUTE AUTO 3.16 K/mm3 (0.84-5.20); LYMPHOCYTES PERCENT AUTO 31 % (21-46); MONOCYTES ABSOLUTE AUTO 0.52 K/mm3 (0.16-1.47); MONOCYTES PERCENT AUTO 5 % (4-13); Mean Corpuscular HGB Conc 33.4 g/dL (31.5-36.5); Mean Corpuscular Volume 85 fL (80-100); NEUTROPHILS ABSOLUTE AUTO 6.14 K/mm3 (1.96-9.15); NEUTROPHILS PERCENT AUTO 61 % (41-73); NRBC ABSOLUTE 0.00 K/mm3 (0.00-0.02); NRBC Auto 0.0 /100 WBC (0.0-0.2); Platelet Count 231 K/mm3 (150-400); RDW Coefficient Variation 12.5 % (11.7-14.2); RDW Standard Deviation 37.8 fL (35.1-46.3)
[2025-03-10 01:51] LABS: Alanine Aminotransfer (ALT/SGP 46.0 U/L (12-78); Albumin, Blood 3.2 g/dL (3.4-5.0); Albumin/Globulin Ratio 0.8 (0.8-1.8); Anion Gap 10.0 mmol/L (3-11); Aspartate Aminotrans (AST/SGOT 24.0 U/L (12-37); Bilirubin, Total 0.3 mg/dL (0.1-1.0); Blood Urea Nitrogen 12.0 mg/dL (8-24); CO2, Blood 24.0 mmol/L (21-32); Calcium, Blood 8.3 mg/dL (8.5-10.1); Chloride, Blood 109.0 mmol/L (98-108); Creatinine, Blood 0.75 mg/dL (0.40-1.00); Globulin, Blood 4.1 g/dL (2.2-4.0); Glucose, Blood 107.0 mg/dL (70-99); Potassium, Blood 3.7 mmol/L (3.5-5.5); Sodium, Blood 139.0 mmol/L (136-145); Total Protein, Blood 7.3 g/dL (6.4-8.2)
[2025-03-10] MEDS ORDERED: Ondansetron HCl 2 MG / ML 2ML Vial IV ONE (02:30)
== END 2025-03-10 03:49 | disposition home or self-care (01) ==
LOC: ER 00:58
PROVIDERS: Student in an Organized Health Care Education/Training Program
DX: K80.20 Calculus of gallbladder without cholecystitis without obstruction (principal); Z88.0 Allergy status to penicillin; Z88.8 Allergy status to other drugs, medicaments and biological substances; Z88.1 Allergy status to other antibiotic agents; Z91.030 Bee allergy status; Z79.2 Long term (current) use of antibiotics; Z79.899 Other long term (current) drug therapy; F17.290 Nicotine dependence, other tobacco product, uncomplicated
CPT/HCPCS: 76705; 80053; 83690; 85025; 99284-25; J2405

== ENCOUNTER 2025-05-07 18:55 | Emergency (ER) | payer OTHER ==
[~2025-05-07] VITALS: Ht 170.2 cm; Wt 117.9 kg
[2025-05-07 19:15] LABS: BASOPHILS ABSOLUTE AUTO 0.05 K/mm3 (0.00-0.23); BASOPHILS PERCENT AUTO 1 % (0-2); EOSINOPHILS ABSOLUTE AUTO 0.10 K/mm3 (0.00-0.68); EOSINOPHILS PERCENT AUTO 1 % (0-6); Hematocrit 44.6 % (33.0-51.0); Hemoglobin 15.1 g/dL (11.5-16.0); IMMATURE GRAN ABSOLUTE AUTO 0.04 K/mm3 (0.00-0.10); IMMATURE GRAN PERCENT AUTO 0 % (0-1); LYMPHOCYTES ABSOLUTE AUTO 3.74 K/mm3 (0.84-5.20); LYMPHOCYTES PERCENT AUTO 37 % (21-46); MONOCYTES ABSOLUTE AUTO 0.68 K/mm3 (0.16-1.47); MONOCYTES PERCENT AUTO 7 % (4-13); Mean Corpuscular HGB Conc 33.9 g/dL (31.5-36.5); Mean Corpuscular Volume 84 fL (80-100); NEUTROPHILS ABSOLUTE AUTO 5.42 K/mm3 (1.96-9.15); NEUTROPHILS PERCENT AUTO 54 % (41-73); NRBC ABSOLUTE 0.00 K/mm3 (0.00-0.02); NRBC Auto 0.0 /100 WBC (0.0-0.2); Platelet Count 249 K/mm3 (150-400); RDW Coefficient Variation 12.6 % (11.7-14.2); RDW Standard Deviation 38.2 fL (35.1-46.3)
[2025-05-07 19:33] LABS: Alanine Aminotransfer (ALT/SGP 62.0 U/L (12-78); Albumin, Blood 3.4 g/dL (3.4-5.0); Albumin/Globulin Ratio 0.9 (0.8-1.8); Anion Gap 10.0 mmol/L (3-11); Aspartate Aminotrans (AST/SGOT 25.0 U/L (12-37); Bilirubin, Total 0.3 mg/dL (0.1-1.0); Blood Urea Nitrogen 11.0 mg/dL (8-24); CO2, Blood 23.0 mmol/L (21-32); Calcium, Blood 8.5 mg/dL (8.5-10.1); Chloride, Blood 109.0 mmol/L (98-108); Creatinine, Blood 0.73 mg/dL (0.40-1.00); Globulin, Blood 3.8 g/dL (2.2-4.0); Glucose, Blood 96.0 mg/dL (70-99); Potassium, Blood 3.4 mmol/L (3.5-5.5); Sodium, Blood 139.0 mmol/L (136-145); Total Protein, Blood 7.2 g/dL (6.4-8.2)
[2025-05-07] MEDS ORDERED: LORazepam 2 MG/ML 1ML Injection IV ONE (19:35)
[2025-05-07 21:00] VITALS: BP 150/75
== END 2025-05-07 21:23 | disposition home or self-care (01) ==
LOC: ER 18:55
PROVIDERS: Emergency Medicine
DX: R56.9 Unspecified convulsions (principal); Z88.0 Allergy status to penicillin; Z88.1 Allergy status to other antibiotic agents; Z79.2 Long term (current) use of antibiotics; F17.290 Nicotine dependence, other tobacco product, uncomplicated
CPT/HCPCS: 80053; 82947; 85025; 93005; 93010; 96374; 99284-25; J2060

== ENCOUNTER 2025-05-20 20:12 | Emergency (ER) | payer OTHER ==
[~2025-05-20] VITALS: Ht 154.9 cm; Wt 131.5 kg
[2025-05-20 21:20] LABS: BASOPHILS ABSOLUTE AUTO 0.06 K/mm3 (0.00-0.23); BASOPHILS PERCENT AUTO 1 % (0-2); EOSINOPHILS ABSOLUTE AUTO 0.18 K/mm3 (0.00-0.68); EOSINOPHILS PERCENT AUTO 2 % (0-6); Hematocrit 41.8 % (33.0-51.0); Hemoglobin 14.4 g/dL (11.5-16.0); IMMATURE GRAN ABSOLUTE AUTO 0.04 K/mm3 (0.00-0.10); IMMATURE GRAN PERCENT AUTO 0 % (0-1); LYMPHOCYTES ABSOLUTE AUTO 2.94 K/mm3 (0.84-5.20); LYMPHOCYTES PERCENT AUTO 29 % (21-46); MONOCYTES ABSOLUTE AUTO 0.56 K/mm3 (0.16-1.47); MONOCYTES PERCENT AUTO 6 % (4-13); Mean Corpuscular HGB Conc 34.4 g/dL (31.5-36.5); Mean Corpuscular Volume 83 fL (80-100); NEUTROPHILS ABSOLUTE AUTO 6.32 K/mm3 (1.96-9.15); NEUTROPHILS PERCENT AUTO 63 % (41-73); NRBC ABSOLUTE 0.00 K/mm3 (0.00-0.02); NRBC Auto 0.0 /100 WBC (0.0-0.2); Platelet Count 241 K/mm3 (150-400); RDW Coefficient Variation 12.7 % (11.7-14.2); RDW Standard Deviation 38.2 fL (35.1-46.3)
[2025-05-20 21:28] LABS: Alanine Aminotransfer (ALT/SGP 69.0 U/L (12-78); Albumin, Blood 3.2 g/dL (3.4-5.0); Albumin/Globulin Ratio 0.9 (0.8-1.8); Anion Gap 10.0 mmol/L (3-11); Aspartate Aminotrans (AST/SGOT 29.0 U/L (12-37); Bilirubin, Total 0.5 mg/dL (0.1-1.0); Blood Urea Nitrogen 9.0 mg/dL (8-24); CO2, Blood 21.0 mmol/L (21-32); Calcium, Blood 8.7 mg/dL (8.5-10.1); Chloride, Blood 111.0 mmol/L (98-108); Creatinine, Blood 0.72 mg/dL (0.40-1.00); Globulin, Blood 3.5 g/dL (2.2-4.0); Glucose, Blood 112.0 mg/dL (70-99); Potassium, Blood 2.9 mmol/L (3.5-5.5); Sodium, Blood 139.0 mmol/L (136-145); Total Protein, Blood 6.7 g/dL (6.4-8.2)
[2025-05-20 21:30] VITALS: BP 114/69
== END 2025-05-20 21:48 | disposition home or self-care (01) ==
LOC: ER 20:12
PROVIDERS: Emergency Medicine
DX: R56.9 Unspecified convulsions (principal); Z88.0 Allergy status to penicillin; Z88.1 Allergy status to other antibiotic agents; Z91.030 Bee allergy status; Z79.899 Other long term (current) drug therapy; F17.290 Nicotine dependence, other tobacco product, uncomplicated
CPT/HCPCS: 80053; 85025; 93005; 93010; 99284; A9270

== ENCOUNTER 2025-05-24 18:11 | Emergency (ER) | payer OTHER ==
[~2025-05-24] VITALS: Ht 154.9 cm; Wt 131.5 kg
[2025-05-24 18:15] VITALS: BP 175/105
[2025-05-24] MEDS ORDERED: EFFEXOR XR37.5 MG PO (18:38)
[2025-05-24] MEDS ORDERED: METFORMIN HCL500 M3 PO (18:38)
[2025-05-24] MEDS ORDERED: PRAZOSIN HCL1 M2 PO (18:39)
[2025-05-24 18:42] LABS: BASOPHILS ABSOLUTE AUTO 0.05 K/mm3 (0.00-0.23); BASOPHILS PERCENT AUTO 1 % (0-2); EOSINOPHILS ABSOLUTE AUTO 0.11 K/mm3 (0.00-0.68); EOSINOPHILS PERCENT AUTO 1 % (0-6); Hematocrit 45.1 % (33.0-51.0); Hemoglobin 15.4 g/dL (11.5-16.0); IMMATURE GRAN ABSOLUTE AUTO 0.03 K/mm3 (0.00-0.10); IMMATURE GRAN PERCENT AUTO 0 % (0-1); LYMPHOCYTES ABSOLUTE AUTO 3.76 K/mm3 (0.84-5.20); LYMPHOCYTES PERCENT AUTO 40 % (21-46); MONOCYTES ABSOLUTE AUTO 0.54 K/mm3 (0.16-1.47); MONOCYTES PERCENT AUTO 6 % (4-13); Mean Corpuscular HGB Conc 34.1 g/dL (31.5-36.5); Mean Corpuscular Volume 82 fL (80-100); NEUTROPHILS ABSOLUTE AUTO 5.02 K/mm3 (1.96-9.15); NEUTROPHILS PERCENT AUTO 53 % (41-73); NRBC ABSOLUTE 0.00 K/mm3 (0.00-0.02); NRBC Auto 0.0 /100 WBC (0.0-0.2); Platelet Count 254 K/mm3 (150-400); RDW Coefficient Variation 12.3 % (11.7-14.2); RDW Standard Deviation 36.9 fL (35.1-46.3)
== END 2025-05-24 19:39 | disposition home or self-care (01) ==
LOC: ER 18:11
PROVIDERS: Student in an Organized Health Care Education/Training Program
DX: R45.851 Suicidal ideations (principal); F17.290 Nicotine dependence, other tobacco product, uncomplicated; Z91.018 Allergy to other foods; Z91.030 Bee allergy status; Z88.0 Allergy status to penicillin; Z79.84 Long term (current) use of oral hypoglycemic drugs; Z79.899 Other long term (current) drug therapy
CPT/HCPCS: 85025; 99283-25

== ENCOUNTER 2025-05-25 19:06 | Emergency (ER) | payer OTHER ==
[~2025-05-25] VITALS: Ht 160 cm; Wt 113.4 kg
[~2025-05-25 19:06] MED LIST changes: +EFFEXOR XR37.5 MG PO; +METFORMIN HCL500 M3 PO; +PRAZOSIN HCL1 M2 PO
[2025-05-25 19:25] LABS: BASOPHILS ABSOLUTE AUTO 0.05 K/mm3 (0.00-0.23); BASOPHILS PERCENT AUTO 1 % (0-2); EOSINOPHILS ABSOLUTE AUTO 0.12 K/mm3 (0.00-0.68); EOSINOPHILS PERCENT AUTO 2 % (0-6); Hematocrit 42.5 % (33.0-51.0); Hemoglobin 15.0 g/dL (11.5-16.0); IMMATURE GRAN ABSOLUTE AUTO 0.02 K/mm3 (0.00-0.10); IMMATURE GRAN PERCENT AUTO 0 % (0-1); LYMPHOCYTES ABSOLUTE AUTO 3.60 K/mm3 (0.84-5.20); LYMPHOCYTES PERCENT AUTO 44 % (21-46); MONOCYTES ABSOLUTE AUTO 0.48 K/mm3 (0.16-1.47); MONOCYTES PERCENT AUTO 6 % (4-13); Mean Corpuscular HGB Conc 35.3 g/dL (31.5-36.5); Mean Corpuscular Volume 83 fL (80-100); NEUTROPHILS ABSOLUTE AUTO 3.88 K/mm3 (1.96-9.15); NEUTROPHILS PERCENT AUTO 48 % (41-73); NRBC ABSOLUTE 0.00 K/mm3 (0.00-0.02); NRBC Auto 0.0 /100 WBC (0.0-0.2); Platelet Count 253 K/mm3 (150-400); RDW Coefficient Variation 12.5 % (11.7-14.2); RDW Standard Deviation 37.8 fL (35.1-46.3)
[2025-05-25 19:51] LABS: Alanine Aminotransfer (ALT/SGP 78.0 U/L (12-78); Albumin, Blood 3.5 g/dL (3.4-5.0); Albumin/Globulin Ratio 1.1 (0.8-1.8); Anion Gap 7.0 mmol/L (3-11); Aspartate Aminotrans (AST/SGOT 35.0 U/L (12-37); Bilirubin, Total 0.3 mg/dL (0.1-1.0); Blood Urea Nitrogen 10.0 mg/dL (8-24); CO2, Blood 28.0 mmol/L (21-32); Calcium, Blood 8.8 mg/dL (8.5-10.1); Chloride, Blood 108.0 mmol/L (98-108); Creatinine, Blood 0.73 mg/dL (0.40-1.00); Globulin, Blood 3.3 g/dL (2.2-4.0); Glucose, Blood 105.0 mg/dL (70-99); Potassium, Blood 3.4 mmol/L (3.5-5.5); Sodium, Blood 140.0 mmol/L (136-145); Total Protein, Blood 6.8 g/dL (6.4-8.2)
[2025-05-25 20:45] VITALS: BP 132/74
== END 2025-05-25 20:50 | disposition home or self-care (01) ==
LOC: ER 19:06
PROVIDERS: Emergency Medicine
DX: R41.82 Altered mental status, unspecified (principal); I10 Essential (primary) hypertension; Z91.038 Other insect allergy status; Z88.0 Allergy status to penicillin; Z91.018 Allergy to other foods; Z79.84 Long term (current) use of oral hypoglycemic drugs; Z79.899 Other long term (current) drug therapy
CPT/HCPCS: 80053; 82550; 84703; 85025; 99284

== ENCOUNTER 2025-06-03 18:51 | Emergency (ER) | payer OTHER ==
[~2025-06-03] VITALS: Ht 154.9 cm; Wt 131.5 kg
[2025-06-03 20:09] LABS: BASOPHILS ABSOLUTE AUTO 0.05 K/mm3 (0.00-0.23); BASOPHILS PERCENT AUTO 1 % (0-2); EOSINOPHILS ABSOLUTE AUTO 0.14 K/mm3 (0.00-0.68); EOSINOPHILS PERCENT AUTO 2 % (0-6); Hematocrit 40.4 % (33.0-51.0); Hemoglobin 14.0 g/dL (11.5-16.0); IMMATURE GRAN ABSOLUTE AUTO 0.02 K/mm3 (0.00-0.10); IMMATURE GRAN PERCENT AUTO 0 % (0-1); LYMPHOCYTES ABSOLUTE AUTO 3.19 K/mm3 (0.84-5.20); LYMPHOCYTES PERCENT AUTO 40 % (21-46); MONOCYTES ABSOLUTE AUTO 0.48 K/mm3 (0.16-1.47); MONOCYTES PERCENT AUTO 6 % (4-13); Mean Corpuscular HGB Conc 34.7 g/dL (31.5-36.5); Mean Corpuscular Volume 82 fL (80-100); NEUTROPHILS ABSOLUTE AUTO 4.09 K/mm3 (1.96-9.15); NEUTROPHILS PERCENT AUTO 51 % (41-73); NRBC ABSOLUTE 0.00 K/mm3 (0.00-0.02); NRBC Auto 0.0 /100 WBC (0.0-0.2); Platelet Count 214 K/mm3 (150-400); RDW Coefficient Variation 12.7 % (11.7-14.2); RDW Standard Deviation 37.9 fL (35.1-46.3)
[2025-06-03 20:12] VITALS: BP 127/65
[2025-06-03 20:44] LABS: Alanine Aminotransfer (ALT/SGP 61.0 U/L (12-78); Albumin, Blood 3.2 g/dL (3.4-5.0); Albumin/Globulin Ratio 0.9 (0.8-1.8); Anion Gap 7.0 mmol/L (3-11); Aspartate Aminotrans (AST/SGOT 30.0 U/L (12-37); Bilirubin, Total 0.2 mg/dL (0.1-1.0); Blood Urea Nitrogen 10.0 mg/dL (8-24); CO2, Blood 24.0 mmol/L (21-32); Calcium, Blood 8.9 mg/dL (8.5-10.1); Chloride, Blood 111.0 mmol/L (98-108); Creatinine, Blood 0.71 mg/dL (0.40-1.00); Globulin, Blood 3.5 g/dL (2.2-4.0); Glucose, Blood 112.0 mg/dL (70-99); Potassium, Blood 3.4 mmol/L (3.5-5.5); Sodium, Blood 139.0 mmol/L (136-145); Total Protein, Blood 6.7 g/dL (6.4-8.2)
== END 2025-06-03 20:32 | disposition home or self-care (01) ==
LOC: ER 18:51
PROVIDERS: Emergency Medicine
DX: G40.909 Epilepsy, unspecified, not intractable, without status epilepticus (principal); Z88.0 Allergy status to penicillin; Z79.899 Other long term (current) drug therapy
CPT/HCPCS: 80053; 85025; 99284; A9270

== ENCOUNTER 2025-06-16 22:15 | Emergency (ER) | payer OTHER ==
[~2025-06-16] VITALS: Ht 154.9 cm; Wt 88.5 kg
[2025-06-16] MEDS ORDERED: NS 1,000 ML IV SCH (22:35)
[2025-06-16 22:51] LABS: BASOPHILS ABSOLUTE AUTO 0.04 K/mm3 (0.00-0.23); BASOPHILS PERCENT AUTO 0 % (0-2); EOSINOPHILS ABSOLUTE AUTO 0.14 K/mm3 (0.00-0.68); EOSINOPHILS PERCENT AUTO 2 % (0-6); Hematocrit 40.0 % (33.0-51.0); Hemoglobin 13.9 g/dL (11.5-16.0); IMMATURE GRAN ABSOLUTE AUTO 0.03 K/mm3 (0.00-0.10); IMMATURE GRAN PERCENT AUTO 0 % (0-1); LYMPHOCYTES ABSOLUTE AUTO 3.39 K/mm3 (0.84-5.20); LYMPHOCYTES PERCENT AUTO 36 % (21-46); MONOCYTES ABSOLUTE AUTO 0.53 K/mm3 (0.16-1.47); MONOCYTES PERCENT AUTO 6 % (4-13); Mean Corpuscular HGB Conc 34.8 g/dL (31.5-36.5); Mean Corpuscular Volume 83 fL (80-100); NEUTROPHILS ABSOLUTE AUTO 5.19 K/mm3 (1.96-9.15); NEUTROPHILS PERCENT AUTO 56 % (41-73); NRBC ABSOLUTE 0.00 K/mm3 (0.00-0.02); NRBC Auto 0.0 /100 WBC (0.0-0.2); Platelet Count 203 K/mm3 (150-400); RDW Coefficient Variation 12.5 % (11.7-14.2); RDW Standard Deviation 37.8 fL (35.1-46.3)
[2025-06-16 23:10] LABS: Alanine Aminotransfer (ALT/SGP 47.0 U/L (12-78); Albumin, Blood 3.1 g/dL (3.4-5.0); Albumin/Globulin Ratio 0.9 (0.8-1.8); Anion Gap 10.0 mmol/L (3-11); Aspartate Aminotrans (AST/SGOT 23.0 U/L (12-37); Bilirubin, Total 0.4 mg/dL (0.1-1.0); Blood Urea Nitrogen 9.0 mg/dL (8-24); CO2, Blood 22.0 mmol/L (21-32); Calcium, Blood 8.3 mg/dL (8.5-10.1); Chloride, Blood 109.0 mmol/L (98-108); Creatinine, Blood 0.63 mg/dL (0.40-1.00); Globulin, Blood 3.4 g/dL (2.2-4.0); Glucose, Blood 98.0 mg/dL (70-99); Potassium, Blood 3.2 mmol/L (3.5-5.5); Sodium, Blood 138.0 mmol/L (136-145); Total Protein, Blood 6.5 g/dL (6.4-8.2)
[2025-06-16 23:51] VITALS: BP 139/68
== END 2025-06-16 23:58 | disposition home or self-care (01) ==
LOC: ER 22:15
PROVIDERS: Emergency Medicine
DX: O99.351 Diseases of the nervous system complicating pregnancy, first trimester (principal); G40.909 Epilepsy, unspecified, not intractable, without status epilepticus; Z88.0 Allergy status to penicillin; Z79.4 Long term (current) use of insulin; Z79.899 Other long term (current) drug therapy; F17.290 Nicotine dependence, other tobacco product, uncomplicated
CPT/HCPCS: 76801; 76817; 80053; 83605; 84703; 85025; 93005; 93010; 96365; 99284-25; J1953; J7030

== ENCOUNTER 2025-07-04 17:57 | Emergency (ER) | payer OTHER ==
[~2025-07-04] VITALS: Ht 154.9 cm; Wt 131.5 kg
[2025-07-04 19:30] VITALS: BP 130/84
== END 2025-07-04 19:45 | disposition home or self-care (01) ==
LOC: ER 17:57
DX: S09.90XA Unspecified injury of head, initial encounter (principal); F17.290 Nicotine dependence, other tobacco product, uncomplicated; Z91.030 Bee allergy status; W18.2XXA Fall in (into) shower or empty bathtub, initial encounter; Z88.0 Allergy status to penicillin; Z91.018 Allergy to other foods; Z79.84 Long term (current) use of oral hypoglycemic drugs; Z79.899 Other long term (current) drug therapy
CPT/HCPCS: 70450; 99284-25